=== PATIENT | male | born 1995 | race Caucasian/White ===

== ENCOUNTER → 2019-02-25 | Outpatient (CLI) | payer BC ==
--- NOTE | 2019-02-26 12:50 | CR ---
DATE OF SERVICE: 02/25/2019 CLINICAL DATA: Pain, unspecified,Other fatigue. PA AND LATERAL CHEST: No priors. The heart size is normal. The lungs are clear. No pneumothorax. No pleural effusions. No evidence of acute intrathoracic disease. [id number] [facility]
== END ==
LOC: LB.CLINIC 13:08
PROVIDERS: ATTEND Family Medicine
DX: R52 Pain, unspecified (principal); R53.83 Other fatigue
CPT/HCPCS: 36415; 71046; 80048; 85025; 87804; 87804-59